=== PATIENT | female | born 1945 | race Caucasian/White ===

== ENCOUNTER 2017-12-18 11:36 | Emergency (ER) | payer MEDICARE ==
[2017-12-18 12:02] LABS: BASOPHILS 0.4 % (0-2); EOSINOPHILS 0.7 % (0-7); HEMATOCRIT 36.5 % (36.0-48.0); HEMOGLOBIN 11.3 g/dL (12-16); IMMATURE GRANULOCYTES 0.2 % (0-5); LYMPHOCYTES 25.8 % (15-50); MCH 22.8 pg (26.0-34.0); MCV 73.7 fL (80.0-100.0); MEAN PLATELET VOLUME 10.2 fL (7.4-10.4); MONOCYTES 4.9 % (2-11); PLATELET COUNT 349 10x3/uL (130-400); RBC 4.95 10x6/uL (4.00-5.40); WBC 10.8 10x3/uL (4.8-10.8)
== END 2017-12-18 13:01 | disposition home or self-care (01) ==
LOC: D.ER 11:36
PROVIDERS: Emergency Medicine
DX: R00.2 Palpitations (principal); F41.9 Anxiety disorder, unspecified; I10 Essential (primary) hypertension; E03.9 Hypothyroidism, unspecified

== ENCOUNTER → 2018-01-01 13:12 | Outpatient (CLI) | payer MEDICARE | END | disposition home or self-care (01) | LOC: D.CT 13:12 | DX: R10.9 Unspecified abdominal pain (principal); K43.2 Incisional hernia without obstruction or gangrene ==

== ENCOUNTER → 2018-08-12 16:36 | Outpatient (CLI) | payer MEDICARE | END | disposition home or self-care (01) | LOC: D.MAMMO 16:00 | DX: Z12.31 Encounter for screening mammogram for malignant neoplasm of breast (principal) ==

== ENCOUNTER → 2018-10-13 12:14 | Outpatient (CLI) | payer MEDICARE, MEDICAID | END | disposition home or self-care (01) | LOC: D.CT 12:14 | DX: R10.11 Right upper quadrant pain (principal) ==

== ENCOUNTER 2018-11-10 11:13 | Outpatient (CLI) | payer MEDICARE, MEDICAID ==
[~2018-11-10] VITALS: Ht 149.9 cm; Wt 77.3 kg
--- NOTE | ~2018-11-10 | HEMODYNAMI ---
PATIENT:KALINA AVILA MEDICAL RECORD: [id number] : 47 LOCATION:[facility] ADMISSION DATE: 11/10/18 Generatedon:11/10/201814:10 Patient name: KALINA AVILA Patient #: [id number] SSN: : 1945 Date of study: 11/10/2018 Page: Of Hemodynamic Procedure Report Patient Data Patient Demographics Procedure consent was obtained First Name: KALINA Gender: Female Last Name: AUSTIN : 1945 Patient #: [id number] Age: 73 year(s) Race: Unknown Additional ID: [id number] Contact details Address: [address] [place] [address] [address] State: [place] City: [facility] Zip code: [address] Past Medical History Allergies Allergen Reaction Date Comments Reported Other allergy 11/10/2018 BENADRYL, IODINE, SODIUM Admission Admission Data Admission Date: 11/10/2018 Admission Time: 11:13 Height (in.): 51 BSA: 1.56 (m2) Height (cm.): 129.54 BMI: 46.76 (kg/m2) Weight (lbs.): 173 Weight (kg.): 78.47 Procedure Procedure Types Cath Procedure Diagnostic Procedure [facility] w/Coronaries Sedation Charges Moderate Sedation up to 15 minutes Procedure Description Procedure Date Procedure Date: 11/10/2018 Procedure Start Time: 13:51 Procedure End Time: 14:09 Procedure Staff Name Function Richy Gregorio MD Performing Physician Sarah Ash RT Monitor Justine Logan RT Scrub Shena Aguirre RN Nurse Juan Jones RN Hostel Manager Procedure Data Cath Procedure Fluoroscopy Diagnostic fluoroscopy Total fluoroscopy dose: 263 dose: 263 mGy mGy Contrast Material Contrast Material Type Amount (ml) Isovue 300 52 Entry Location Entry Primary Successful Side Size Upsize Upsize Entry Closure Succes sful Closure Location (Fr) 1 (Fr) 2 (Fr) Remarks Device Remarks Radial Right 6 Fr artery Short Femoral Right 5 Fr Exoseal artery Estimated blood loss: 5 ml Diagnostic catheters Device Type Used For End Catheter Placement MULTIPACK JL 4.0 5Fr Procedure catheter MULTIPACK 3DRC 5Fr Procedure catheter MULTIPACK Pigtail 5 Fr Procedure catheter Procedure Complications No complications Procedure Medications Medication Administration Route Dosage Oxygen etCO2 Nasal cannula 2 l/min Lidocaine 2% added to field 20 Heparin Flush Bag added to field 2 bags (1000units/500ml NS) 0.9% NaCl I.V. 100 ml/hr Radial Cocktail added to field 1 syringe (Verapomil 2mg/Nitro 400mcg/Heparin 1500units) Versed I.V. 1 mg Fentanyl I.V. 50 mcg Versed I.V. 1 mg Fentanyl I.V. 50 mcg Versed I.V. 1 mg Hemodynamics Rest BSA: 1.56 (m2) O2 Consumption: Estimated: 156.28 (ml/min) O2 Consumption indexed : Estimated:100.18 (ml/min/m) Heart Rate: 92 (bpm) Pressure Samples Time Site Value (mmHg) Purpose Heart Use Rate(bpm) 14:00 LV 127/14,12 Snapshot 95 Gradients Valve Time Site Site Mean SEP/DFP Peak To Heart Use 1 2 (mmHg) (sec/min) Peak Rate (mmHg) (bpm) Aortic 14:00 LV AO 96 Snapshots Pre Cath Intra NCS Post Cath Vital Signs Time Heart Resp SPO2 etCO2 NIBP (mmHg) Rhythm Pain Sedation Rate (ipm) (%) (mmHg) Status Level (bpm) 13:43:23 95 17 96 22.4 166/94(135) NSR 0 (11) 10(A) , No pain 13:47:37 93 17 94 32.9 160/92(129) NSR 0 (11) 10(A) , No pain 13:51:53 94 16 93 32.9 161/90(126) NSR 0 (11) 10(A) , No pain 13:56:09 88 16 94 27.7 151/88(127) NSR 0 (11) 10(A) , No pain 14:01:20 106 15 93 11.2 161/90(129) NSR 0 (11) 10(A) , No pain 14:04:00 97 15 95 17.4 163/93(137) NSR 0 (11) 10(A) , No pain 14:08:16 97 15 90 26.9 151/87(122) NSR 0 (11) 10(A) , No pain Medications Time Medication Route Dose Verified Delivered Reason Notes Effectiveness by by 13:41:36 Oxygen etCO2 2 l/min Richy Pawelie used for Nasal [facility] Aguirre RN procedure cannula 13:41:42 Lidocaine 2% added 20ml Richy Richy for local to vial [facility] anesthetic field MD BENSON 13:41:49 Heparin Flush added 2 bags Richy Lockhart used for Bag to [facility] procedure (1000units/500ml field MD BENSON NS) 13:41:58 0.9% NaCl I.V. 100 Richy Armasie Per ml/hr [facility] Aguirre RN physician 13:42:04 Radial Cocktail added 1 Richy Richy for WASTED , (Verapomil to syringe [facility] vasodilation FEMORAL 2mg/Nitro field MD BENSON ARTERY 400mcg/Heparin USED. 1500units) 13:44:12 Versed I.V. 1 mg Richy Pawelie for sedation [facility] Aguirre RN, MD 13:44:18 Fentanyl I.V. 50 mcg Richy Chatterjee for sedation [facility] Aguirre RN, MD 13:47:57 Versed I.V. 1 mg Richy Armasie for sedation [facility] Aguirre RN, MD 13:48:02 Fentanyl I.V. 50 mcg Richy Armasie for sedation [facility] Aguirre RN, MD 14:00:04 Versed I.V. 1 mg Richy Armasie for sedation [facility] Aguirre RN, MD Procedure Log Time Note 13:25:02 Juna Jones RN sent for patient. Start room use. 13:33:04 Time tracking: Regular hours (M-F 7:00 - 5:00) 13:33:07 Plan of Care:Hemodynamics will remain stable., Cardiac rhythm will remain stable., Comfort level will be maintained., Respiratory function will remain adequate., Patient/ family verbilizes understanding of procedure., Procedure tolerated without complication., Recovers from procedure without complications.. 13:33:09 Diagnostic Cath status Elective 13:33:10 Signed procedure consent form obtained from patient. 13:34:37 Patient received from Pre/Post Procedure Room to [facility] 2 Alert and oriented. Tansferred to table in Supine position. 13:34:38 Warm blankets applied, and kit hugger turned on for patient comfort. 13:34:38 Correct patient and procedure confirmed by team. 13:34:39 ECG and BP/O2 sat monitors applied to patient. 13:41:36 Oxygen 2 l/min etCO2 Nasal cannula was administered by Shena Aguirre RN; used for procedure; 13:41:42 Lidocaine 2% 20ml vial added to field was administered by Richy Gregorio MD; for local anesthetic; 13:41:49 Heparin Flush Bag (1000units/500ml NS) 2 bags added to field was administered by Richy Gregorio MD; used for procedure; 13:41:58 0.9% NaCl 100 ml/hr I.V. was administered by Shena Aguirre RN; Per physician; 13:42:04 Radial Cocktail (Verapomil 2mg/Nitro 400mcg/Heparin 1500units) 1 syringe added to field was administered by Richy Gregorio MD; for vasodilation; WASTED, FEMORAL ARTERY USED. 13:42:17 Vital chart was started 13:42:22 Rhythm: sinus rhythm 13:42:25 Full Disclosure recording started 13:42:41 H&P Date Dictated: 11/06/2018 Within 30 days and on chart., H&P Addendum completed by physician on day of procedure. (MUST COMPLETE FOR ALL OUTPATIENTS). 13:42:42 Pre-procedure instructions explained to patient. 13:42:43 Pre-op teaching completed and patient verbalized understanding. 13:42:44 Family in patients room. 13:42:45 Patient NPO since Midnight. 13:43:01 Patient allergic to Other allergyBENADRYL, IODINE, SODIUM 13:43:02 Is the patient allergic to Iodine/contrast media? Yes. 13:43:04 Was the patient premedicated? Yes 13:43:05 Is patient on blood thinner?No 13:43:06 Patient diabetic? No. 13:43:09 Previous problem with sedation/anesthesia? No ? 13:43:10 Snore? Yes 13:43:11 Sleep apnea? No 13:43:12 Deviated septum? No 13:43:13 Opens mouth fully? Yes 13:43:15 Sticks out tongue? Yes 13:43:17 Airway obstruction? No ? 13:43:18 Dentures? No ? 13:43:20 Modified Nate's test Ulnar < 7 seconds 13:43:23 Patient pain scale 0/10 ?. 13:43:26 IV patent on arrival in left hand with 0.9% NaCl at [facility]. 13:43:35 Lab results completed and on chart. 13:43:37 Right Radial & Right Groin area was prepped with chlora-prep and draped in sterile fashion 13:43:38 Alarms reviewed by R. N. 13:43:38 Sharps counted by scrub and verified by R.N. 13:43:39 --------ALL STOP TIME OUT------ 13:43:39 Final Timeout: patient, procedure, and site verified with staff and physician. All members of the team are in agreement. 13:43:41 Right Radial & Right Groin site verified by team. 13:43:44 Physical assessment completed. ASA score P 2 - A patient with mild systemic disease as per Richy Gregorio MD. 13:43:46 Sedation plan: IV Moderate Sedation Medication:Versed, Fentanyl 13:43:49 Use device set Radial Dx or PCI 13:43:50 ACIST Syringe (13652) opened to sterile field. 13:43:51 Bag Decanter (2002S) opened to sterile field. 13:43:52 ACIST Hand Control (00226) opened to sterile field. 13:43:52 ACIST Manifold (62062) opened to sterile field. 13:43:53 Tegaderm 4 x 4 (1626W) opened to sterile field. 13:43:54 Medline Cath Pack ([id number]) opened to sterile field. 13:43:54 DIAGNOSTIC WIRE .035 260cm J wire (811166) opened to sterile field. 13:43:55 MBrace Wrist Support ([id number]) opened to sterile field. 13:43:56 SHEATH 6FR Slender (93-6427) opened to sterile field. 13:44:12 Versed 1 mg I.V. was administered by Shena Aguirre RN; for sedation; 13:44:18 Fentanyl 50 mcg I.V. was administered by Shena Aguirre RN; for sedation; 13:47:41 Baseline sample Acquired. 13:47:57 Versed 1 mg I.V. was administered by Shena Aguirre RN; for sedation; 13:47:57 Zero performed for pressure channel P1 13:48:02 Fentanyl 50 mcg I.V. was administered by Shena Aguirre RN; for sedation; 13:48:05 Zero performed for pressure channel P1 13:50:58 Procedure started. 13:51:23 Local anesthetic to right radial artery with Lidocaine 2% by Richy Gregorio MD.INITIAL ACCESS ONLY 13:51:42 Zero performed for pressure channel P1 13:52:22 A 6 Fr Short sheath was inserted into the Right Radial artery 13:55:27 RO RADIAL..UNABLE TO GET WIRE PAST THE ELBOW 13:55:31 Local anesthetic to right femoral artery with Lidocaine 2% by Richy Gregorio MD.ADDITIONAL ACCESS 13:55:40 A 5 Fr sheath was inserted into the Right Femoral artery 13:55:45 Use device set Multipack Set 13:55:48 DIAGNOSTIC Multipack 5Fr catheter set ([id number]) opened to sterile field. 13:56:50 A MULTIPACK JL 4.0 5Fr catheter was advanced over the wire and used for Procedure. 13:57:24 LCA angiography performed. 13:57:47 Catheter removed. 13:58:00 A MULTIPACK 3DRC 5Fr catheter was advanced over the wire and used for Procedure. 13:58:43 RCA angiography performed. 13:58:44 Catheter removed. 13:59:08 A MULTIPACK Pigtail 5 Fr catheter was advanced over the wire and used for Procedure. 13:59:22 LV gram done using ESCALANTE 13:59:42 Injector settings: Ml/sec: 10, Volume: 20, 14:00:04 Versed 1 mg I.V. was administered by Shena Aguirre RN; for sedation; 14:00:11 LV hemodynamics recorded. 14:00:19 EF : 55 % 14:00:41 Catheter removed. 14:00:52 EXOSEAL 5Fr (EX500) opened to sterile field. 14:00:58 TR BAND Standard ([id number]) opened to sterile field. 14:01:21 Sheath removed intact; hemostasis achieved with Exoseal to the Right Femoral artery. 14:01:28 Procedure ended.(Physican Out) 14:03:55 Fluoroscopy dose: 263 mGy 14:03:55 Flurop Dose total: 263 14:03:59 Contrast amount:Isovue 300 52ml. 14:04:02 Sharps counted by scrub and verified by R.N. 14:04:05 TR band inflated with 13cc of air. 14:05:57 Patient Height : 51 inches 14:06:00 Patient Weight : 173 lbs 14:08:03 Post-procedure physical assessment completed. ASA score P 2 - A patient with mild systemic disease as per Richy Gregorio MD. 14:08:06 Post procedure rhythm: sinus rhythm 14:08:09 Estimated blood loss: 5 ml 14:08:09 Post procedure instruction explained to patient.Patient verbalizes understanding. 14:08:13 Patient needs reinforcement of post procedure teaching. 14:08:40 Procedure type changed to Cath procedure, Diagnostic procedure, LHC, LHC w/Coronaries, Sedation Charges, Moderate Sedation up to 15 minutes 14:09:41 Procedure and supply charges have been captured, reviewed, submitted and are correct. 14:09:43 Procedure Complication : No complications 14:09:45 Vital chart was stopped 14:09:45 See physician's report for complete and final results. 14:09:47 Report given to Pre/Post Procedure Room. 14:09:49 Patient transfered to Pre/Post Procedure Room with Bed. 14:09:51 Procedure ended. 14:09:51 Full Disclosure recording stopped 14:09:54 End room use (Document Last) Device Usage Item Name Manufacture Quantity Catalog Hospital Part Current Minimal Lot# / Number Charge Number Stock Stock Serial# Code ACIST Acist 1 00312 [id number] 090335 608153 20 Syringe Medical (00549) Systems Inc Bag Microtek 1 2001S 609451 04845 618454 5 Decanter Medical Inc. () ACIST Hand Acist 1 76160 207846 098237 618705 5 Control Medical (92509) Systems Inc ACIST Acist 1 37161 784183 047795 670742 5 Manifold Medical (96755) Systems Inc Tegaderm 4 3M 1 1626W 554277 970107 388076 5 x 4 (1626W) Medline Medline 1 [id number] 757563 19414 277729 5 Cath Pack ([id number]) DIAGNOSTIC St Thai 1 965468 764435 090798 487480 30 WIRE .035 260cm J wire (539921) MBrace Advanced 1 140-0250-00 522546 28194 316006 5 Wrist Vascular Support Dynamics ([id number]) SHEATH 6FR Terumo 1 [id number] 297879 541244 406075 5 Slender (80-1060) DIAGNOSTIC Cardinal 1 GV3247 832274 03301 826719 30 Multipack Health 5Fr catheter set (TF0966) MULTIPACK Cardinal 1 407087 5 JL 4.0 5Fr Health catheter MULTIPACK Cardinal 1 788507 5 3DRC 5Fr Health catheter MULTIPACK Cardinal 1 548582 5 Pigtail 5 Health Fr catheter EXOSEAL 5Fr Cardinal 1 EX500 338779 870617 625550 10 (EX500) Health TR BAND Terumo 1 [id number] 379986 482967 284621 40 Standard ([id number]) Signature Audit [place] Stage Time Signature Unsigned Intra-Procedure 11/10/2018 Sarah Ash 2:10:21 PM RT(R) Signatures Monitor : Sarah Ash Signature : RT Date : Time : [address] [address]
[2018-11-10] MEDS ORDERED: NORVASC2.5 MG PO (11:45)
[2018-11-10] MEDS ORDERED: VASOTEC20 MG PO (11:46)
[2018-11-10 11:51] VITALS: BP 132/81; Ht 149.9 cm; Wt 77.3 kg
[2018-11-10 12:17] LABS: BASOPHILS 0.1 % (0-2); EOSINOPHILS 0 % (0-7); HEMATOCRIT 43.7 % (36.0-48.0); HEMOGLOBIN 14.7 g/dL (12-16); IMMATURE GRANULOCYTES 0.1 % (0-5); LYMPHOCYTES 9.5 % (15-50); MCH 28.6 pg (26.0-34.0); MCHC 33.6 g/dL (31.0-37.0); MEAN PLATELET VOLUME 10.6 fL (7.4-10.4); MONOCYTES 1.1 % (2-11); NEUTROPHILS 89.2 % (40-80); RBC 5.14 10x6/uL (4.00-5.40); RDW 15.7 % (11.5-14.5); WBC 13.5 10x3/uL (4.8-10.8)
[2018-11-10 12:31] LABS: CALC OSMOLALITY 292 mosm/kg (275-300); CALCIUM 9.4 mg/dL (8.5-10.1); CARBON DIOXIDE 24.9 mmol/L (21.0-32.0); CHLORIDE - SERUM 105 mmol/L (98-107); CREATININE - SERUM 0.7 mg/dL (0.6-1.3); GLUCOSE 122 mg/dL (74-106); POTASSIUM - SERUM 3.1 mmol/L (3.5-5.1); SODIUM 145 mmol/L (136-145); UREA NITROGEN 21 mg/dL (7-18); eGFR NON AFRICAN AMERICAN 87 mL/min (90-120)
[2018-11-10 12:35] LABS: PLATELET COUNT 278 10x3/uL (130-400)
--- NOTE | 2018-11-10 14:20 | NUR ---
PT RECEIVED VIA STRETCHER FROM [employer]. HR 97, BP 141/84, O2 ON AT 2L/NC O2 SAT 95. PT DENIES PAIN OR NAUSEA, TR BAND TO R WRIST, NO BLEEDING OR HEMATOMA NOTED. 5FR EXOCELE TO R GROIN, DRESSING CDI NO BLEEDING OR SWELLING NOTED. R PEDAL PULSES PALPABLE. PT INSTRUCTED TO KEEP HEAD FLAT AND R LEG STRAIGHT. CALL LIGHT IN REACH.
--- NOTE | 2018-11-10 14:30 | NUR ---
PT RESTING WITH EYES CLOSED, TR BAND IN PLACE, NO BLEEDING OR SWELLING NOTED. R GROIN DRESSING CDI NO BLEEDING OR HEMATOMA NOTED. SIPS OF WATER GIVEN. DENIES PAIN OR NEEDS. CALL LIGHT IN REACH
--- NOTE | 2018-11-10 15:00 | NUR ---
PT RESTING W EYES CLOSED, HR SINUS TACHY RATE 92, BP 145/77. TR BAND IN PLACE, NO BLEEDING OR SWELLING NOTED. R GROIN SOFT TO TOUCH, DRESSING CDI NO BLEEDING OR HEMATOMA NOTED. CALL LIGHT IN REACH
--- NOTE | 2018-11-10 15:15 | NUR ---
3 CC OF AIR REMOVED FROM TR BAND, NO BLEEDING OR SWELLING NOTED. R GROIN DRESSING REMAINS CDI NO BLEEDING OR SWELLING NOTED. CALL LIGHT IN REACH, DENIES PAIN OR NEEDS.
--- NOTE | 2018-11-10 15:29 | NUR ---
PT PLACED ON BEDPAN, VOIDED MOD AMOUNT CLEAR YELLOW URINE. HOB ELEVATED SLIGHTLY, SANDWICH SERVED. DENIES PAIN OR NEEDS. CALL LIGHT IN REACH
--- NOTE | 2018-11-10 15:40 | NUR ---
3 ADD'L CC REMOVED FROM TR BAND, NO BLEEDING OR HEMATOMA NOTED. R GROIN DRESSING REMAINS CDI, NO BLEEING OR SWELLING NOTED. TOLERATED LUNCH W/O NAUSEA. DENIES PAIN OR NEEDS. CALL LIGHT IN REACH. VSS.
--- NOTE | 2018-11-10 16:10 | NUR ---
DISCHARGE INSTRUCTIONS REVIEWED WITH PT AND FAMILY, VERBALIZED UNDERSTANDING. IV REMOVED WITH CATH INTACT, MONITORS REMOVED. WAITING FOR DR. YEN TO TALK WITH FAMILY BEFORE DISCHARGE.
--- NOTE | 2018-11-10 16:20 | NUR ---
DR YEN IN AND SPOKE WITH PT AND FAMILY REGARDING CATH FINDINGS AND PLAN OF CARE. PT UP TO DRESS FOR DISCHARGE
--- NOTE | 2018-11-10 16:30 | NUR ---
REMAINING AIR REMOVED FROM TR BAND, BAND REMOVED AND DRESSING APPLIED. NO BLEEDING OR HEMATOMA NOTED. PT DISCHARGED VIA WC TO PRIVATE VEHICLE.
--- NOTE | 2018-11-13 13:30 | OP ---
PATIENT NAME: KALINA AVILA MEDICAL RECORD: [id number] :47 LOCATION:D.CAT ADMISSION DATE: SURGEON: SEVEN ROSENTHAL MD DATE OF OPERATION: 11/10/2018 PROCEDURE: Left heart catheterization, selective coronary angiography, right femoral artery approach. CATHETERS: A 5-Nepalese sheath, 5/4 left and right Pebbles, 5/4 pig. The procedure was well tolerated. The patient was returned to the gray. Sheath was removed. ExoSeal device was placed. FINDINGS: Left ventriculography in 30-degree ESCALANTE view: Normal wall motion. Normal systolic function. CORONARY ANATOMY: LEFT MAIN: Left main is free of disease. LAD: Free of disease in the diagonal system. CIRCUMFLEX: Free of disease in the marginal system. RIGHT CORONARY ARTERY: Dominant artery, gives rise to PDA, free of disease. IMPRESSION: Normal LV systolic function. Normal coronary anatomy. TRANSINT:[id number] Voice Confirmation ID: [id number] DOCUMENT ID: [id number] SEVEN ROSENTHAL MD at 1330 CC: [id number] DICTATION DATE: 11/10/18 1409 ASSISTANT TENNIS PROFESSIONAL: 11/10/18 1605 DEP CLI 11/10/18 [place] [address] [place] [address]
== END 2018-11-10 16:30 | disposition home or self-care (01) ==
LOC: D.CATH 11:13
PROVIDERS: Internal Medicine Interventional Cardiology
DX: I20.9 Angina pectoris, unspecified (principal)

== ENCOUNTER → 2019-01-22 08:11 | Outpatient (CLI) | payer MEDICARE, MEDICAID ==
[2018-11-10 11:51] VITALS: BMI 34.4
[~2019-01-22 08:11] MED LIST: NORVASC2.5 MG PO; VASOTEC20 MG PO
== END | disposition home or self-care (01) ==
LOC: D.US 08:11
PROVIDERS: ATTEND Family Medicine
DX: E04.9 Nontoxic goiter, unspecified (principal)

== ENCOUNTER 2019-02-16 01:24 | Emergency (ER) | payer MEDICARE, MEDICAID ==
[~2019-02-16] VITALS: Ht 149.9 cm; Wt 75.3 kg
[2019-02-16 01:27] VITALS: Ht 149.9 cm; Wt 75.3 kg
[2019-02-16] MEDS ORDERED: ALBUTEROL SULF8.5 GM INH (01:29)
[2019-02-16] MEDS ORDERED: ULTRAM50 MG PO (01:29)
[2019-02-16 01:44] LABS: BASOPHILS 0.5 % (0-2); EOSINOPHILS 1.1 % (0-7); HEMOGLOBIN 13.7 g/dL (12-16); IMMATURE GRANULOCYTES 0.2 % (0-5); LYMPHOCYTES 28.1 % (15-50); MCH 28.5 pg (26.0-34.0); MCHC 33.4 g/dL (31.0-37.0); MCV 85.4 fL (80.0-100.0); MONOCYTES 8.9 % (2-11); NEUTROPHILS 61.2 % (40-80); PLATELET COUNT 278 10x3/uL (130-400); RDW 15.1 % (11.5-14.5); WBC 8.8 10x3/uL (4.8-10.8)
[2019-02-16 01:54] LABS: APTT 35.9 SECONDS (22.8-39.4); INR 1.18 (0.85-1.17); PROTIME 14.5 SECONDS (11.6-15.0)
[2019-02-16 01:58] LABS: ALBUMIN 3.5 g/dL (3.4-5.0); ALKALINE PHOSPHATASE 82 U/L (46-116); ALT (SGPT) 25 U/L (10-68); BILIRUBIN - TOTAL 0.45 mg/dL (0.2-1.3); CALC OSMOLALITY 283 mosm/kg (275-300); CALCIUM 8.5 mg/dL (8.5-10.1); CARBON DIOXIDE 29.2 mmol/L (21.0-32.0); CHLORIDE - SERUM 105 mmol/L (98-107); CREATININE - SERUM 0.6 mg/dL (0.6-1.3); GLUCOSE 99 mg/dL (74-106); POTASSIUM - SERUM 3.2 mmol/L (3.5-5.1); PROTEIN - SERUM 7.2 g/dL (6.4-8.2); SODIUM 141 mmol/L (136-145); UREA NITROGEN 22 mg/dL (7-18); eGFR NON AFRICAN AMERICAN > 90 mL/min (90-120)
[2019-02-16 02:09] LABS: CKMB 1.2 U/L (0.0-3.6); CREATINE KINASE 73 UL (21-215); MAGNESIUM - SERUM 1.9 mg/dL (1.8-2.4)
[2019-02-16 02:11] LABS: TROPONIN-I < 0.017 ng/mL (0.000-0.060)
[2019-02-16 03:26] VITALS: BP 148/75
== END 2019-02-16 03:26 | disposition home or self-care (01) ==
LOC: D.ER 01:24
PROVIDERS: Family Medicine
DX: R07.9 Chest pain, unspecified (principal); I10 Essential (primary) hypertension

== ENCOUNTER → 2019-03-26 10:53 | Outpatient (CLI) | payer MEDICARE, MEDICAID ==
[2019-02-16 01:27] VITALS: BMI 34.4
[~2019-03-26 10:53] MED LIST changes: +ALBUTEROL SULF8.5 GM INH; +ULTRAM50 MG PO
== END | disposition home or self-care (01) ==
LOC: D.RAD 10:53
PROVIDERS: ATTEND Internal Medicine Gastroenterology
DX: R13.10 Dysphagia, unspecified (principal); K92.1 Melena

== ENCOUNTER → 2019-09-16 21:30 | Outpatient (CLI) | payer MEDICARE, MEDICAID ==
[2019-02-16 01:27] VITALS: BMI 34.4
[2019-09-21 17:08] LABS: AEROBE ID Final report (())
== END | disposition home or self-care (01) ==
LOC: D.LABREF 21:30
PROVIDERS: ATTEND Urology
DX: D72.0 Genetic anomalies of leukocytes (principal); Z03.89 Encounter for observation for other suspected diseases and conditions ruled out

== ENCOUNTER 2020-06-06 19:00 | Outpatient (CLI) | payer MEDICARE, MEDICAID ==
[2019-02-16 01:27] VITALS: BMI 34.4
== END 2020-06-06 23:59 | disposition home or self-care (01) ==
LOC: D.MAMMO 19:00
PROVIDERS: ATTEND Family Medicine
DX: Z12.31 Encounter for screening mammogram for malignant neoplasm of breast (principal)

== ENCOUNTER → 2021-01-19 11:26 | Outpatient (CLI) | payer MEDICARE, MEDICAID ==
[2020-12-01 18:24] VITALS: BMI 34.0
[~2021-01-19 11:26] MED LIST changes: +ZPAK PO
--- NOTE | 2021-01-23 16:00 | EC ---
PATIENT:KALINA AVILA DATE OF SERVICE: 01/19/21 SEX: F MEDICAL RECORD: [id number] DATE OF : [birth year] LOCATION:[facility] AGE OF PATIENT: 75 ADMISSION DATE: 01/19/21 REFERRING PHYSICIAN: INTERPRETING PHYSICIAN: SEVEN ROSENTHAL MD ECHOCARDIOGRAM REPORT ECHO CHARGES 4 ECHO COMPLETE Date: 01/19/21 CLINICAL DIAGNOSIS: DYSPNEA/HEART MURMUR ECHOCARDIOGRAPHIC MEASUREMENTS (adult normal given) AC root (d.<3.7cm) 3.2 cm LV Septum d (<1.2 cm> 1.2 cm Valve Excursion 1.4 cm LV Septum (systole) 1.4 cm Left Atria (s.<4.0cm> 3.6 cm LVPW d(<1.2cm) 1.6 cm RV (d.<2.3cm) 3.8 cm LVPW (sytole) 1.8 cm LV diastole(<5.6CM) 5.1 cm MV E-F(>70mm/sec) cm LV systole 3.0 cm LVOT Diameter 1.7 cm MV exc.(>10mm) 1.2 cm Est.ejection fraction (50-75%) % DOPPLER: LVIT cm/sec A 92.0 cm/sec E 71.0 cm/sec LA cm/sec RVSP 34 mmHg LVOT 90 cm/sec AOP1/2T m/s Asc. Ao 113 cm/sec RVOT 79 cm/sec RA cm/sec PA 115 cm/sec AV Gradient Peak 5.14 mmHg AV Mean 2.53 mmHg AV Area 2.0 cm MV Gradient Peak 4.19 mmHg MV Mean 1.27 mmHg MV Area cm COMMENTS: Greenskeeper Head: 2 GANESH KIRK Microfilm Duplicating Unit Supervisor: 3 Dr. Pink TAPE# PACS Pericardial Effusion N DATE OF SERVICE: Adequate 2D, color flow imaging, spectral Doppler, and M-Mode. FINDINGS: Borderline LVH. LV internal dimension is normal. Wall motion is normal. EF is greater than or equal to 55%. Aortic valve is tricuspid. No evidence of stenosis by Doppler interrogation. Left atrium is normal at 3.6 cm. Mitral valve shows no prolapse. Trace MR. Right side is grossly normal. Mild TR. ECHOCARDIOGRAM REPORT [id number] KALINA AVILA TRANSINT:[id number] Voice Confirmation ID: [id number] DOCUMENT ID: [id number] SEVEN ROSENTHAL MD at 1600 CC: [id number] DICTATION DATE: 01/20/21820 MANAGER PRODUCE: 01/20/21911 DEP CLI 01/19/21 [place] [id number] [place] [id number]
== END | disposition home or self-care (01) ==
LOC: D.HCCECHO 01-16 11:30
PROVIDERS: ATTEND Internal Medicine Interventional Cardiology
DX: R06.00 Dyspnea, unspecified (principal)

== ENCOUNTER → 2021-02-07 08:14 | Outpatient (CLI) | payer MEDICARE, MEDICAID ==
[2020-12-01 18:24] VITALS: BMI 34.0
== END | disposition home or self-care (01) ==
LOC: D.RAD 08:14
PROVIDERS: ATTEND Family Medicine
DX: R13.10 Dysphagia, unspecified (principal)

== ENCOUNTER 2021-02-20 22:09 | Observation (INO) | payer MEDICARE, MEDICAID ==
[~2021-02-20] VITALS: Ht 149.9 cm; Wt 75.9 kg
[2021-02-20 22:39] LABS: BASOPHILS 0.4 % (0-2); EOSINOPHILS 0.9 % (0-7); HEMATOCRIT 42.4 % (36.0-48.0); HEMOGLOBIN 14.1 g/dL (12-16); IMMATURE GRANULOCYTES 0.2 % (0-5); LYMPHOCYTE ABS# 3.03 10x3/uL (1.18-3.74); LYMPHOCYTES 29.6 % (15-50); MCH 29.3 pg (26.0-34.0); MCHC 33.3 g/dL (31.0-37.0); MCV 88.1 fL (80.0-100.0); MEAN PLATELET VOLUME 11.1 fL (7.4-10.4); MONOCYTES 7.4 % (2-11); NEUTROPHIL ABS# 6.28 10x3/uL (1.56-6.13); NEUTROPHILS 61.5 % (40-80); PLATELET COUNT 249 10x3/uL (130-400); RBC 4.81 10x6/uL (4.00-5.40); WBC 10.2 10x3/uL (4.8-10.8)
[2021-02-20 22:42] LABS: BILIRUBIN NEGATIVE (NEGATIVE); KETONE NEGATIVE (NEGATIVE); NITRITE NEGATIVE (NEGATIVE); UROBILINOGEN NORMAL mg/dL (< 2)
[2021-02-20 22:46] LABS: BACTERIA FEW HPF (NONE SEEN); CALC OSMOLALITY 282 mosm/kg (275-300); CALCIUM 8.9 mg/dL (8.5-10.1); CARBON DIOXIDE 23.2 mmol/L (21.0-32.0); CHLORIDE - SERUM 104 mmol/L (98-107); CREATININE - SERUM 0.6 mg/dL (0.6-1.3); GLUCOSE 112 mg/dL (74-106); POTASSIUM - SERUM 4.3 mmol/L (3.5-5.1); SODIUM 141 mmol/L (136-145); SQUAMOUS EPITHELIAL 0-5 HPF (0-4); UREA NITROGEN 14 mg/dL (7-18); WHITE CELLS - URINE NONE SEEN HPF (0-4); eGFR NON AFRICAN AMERICAN > 90 mL/min (90-120)
[2021-02-20 22:54] LABS: ALBUMIN 3.4 g/dL (3.4-5.0); ALKALINE PHOSPHATASE 116 U/L (30-120); ALT (SGPT) 21 U/L (10-68); AMYLASE - SERUM 36 U/L (25-115); BILIRUBIN - TOTAL 0.61 mg/dL (0.2-1.3); LIPASE 129 U/L (73-393); PROTEIN - SERUM 7.2 g/dL (6.4-8.2)
[2021-02-20 22:55] LABS: TROPONIN-I < 0.017 ng/mL (0.000-0.060)
[2021-02-20 23:30] VITALS: BP 182/92
[2021-02-21] VITALS (8 sets, daily range): BP systolic 145–189; BP diastolic 68–91; Ht 149.9 cm; Wt 75.9 kg
[2021-02-21 03:43] LABS: CKMB 1.6 U/L (0.0-3.6); CREATINE KINASE 65 UL (21-215)
[2021-02-21 03:46] LABS: TROPONIN-I < 0.017 ng/mL (0.000-0.060)
[2021-02-21] MEDS ORDERED: SYNTHROID25 MCG PO (06:09)
[2021-02-21] MEDS ORDERED: MICARDIS40 MG PO (10:24)
--- NOTE | 2021-02-21 15:20 | NUR ---
ALERT AND ORIENTED X4. PATIENT STATES, "I'M NOT LEAVING UNTIL THEY FIND OUT WHAT IS GOING ON." BEGINS CALLING INSURANCE COMPANY AND 'S OFFICE. INFORM DOCTOR WILL BE INFORMED. INFORM JUAN CARLOS PINO PATIENT REQUESTING MORE INFORMATION CAUSING PAIN.
--- NOTE | 2021-02-21 17:28 | NUR ---
ALERT AND ORIENTED X4. SITTING UP IN BED. DC LT HAND IV TIP INTACT. DISCHARGE INSTRUCTIONS GIVEN VERBALLY AND WRITTEN. DISCHARGE PAPERS SIGNED ON CHART. ESCORT TO RIDE VIA WHEELCHAIR. REMAINS FREE FROM INJURY. TREAT ELEVATED BP WITH VASOTEC SCHEDULED 2100 MEDICATION.
== END 2021-02-21 17:32 | disposition home or self-care (01) ==
LOC: EDBD 22:09 → D.ER 22:09 → D.M2 02-21 03:54 → EDBD 02-21 03:54 → OBSVTIME 02-21 03:55 → D.M2 02-21 17:32
PROVIDERS: Family Medicine; ADMIT Family Medicine; ATTEND Family Medicine
DX: K80.20 Calculus of gallbladder without cholecystitis without obstruction (principal); R10.9 Unspecified abdominal pain; I10 Essential (primary) hypertension; J45.901 Unspecified asthma with (acute) exacerbation; G89.29 Other chronic pain; E87.6 Hypokalemia

== ENCOUNTER 2021-04-11 07:45 | Day surgery (SDC) | payer MEDICARE, MEDICAID ==
[~2021-04-11] VITALS: Ht 149.9 cm; Wt 75.0 kg
[~2021-04-11 07:45] MED LIST changes: +MICARDIS40 MG PO; +SYNTHROID25 MCG PO
[2021-04-11 08:10] LABS: EOSINOPHILS 1.8 % (0-7); HEMATOCRIT 44.1 % (36.0-48.0); HEMOGLOBIN 14.7 g/dL (12-16); LYMPHOCYTES 25.5 % (15-50); MCH 28.9 pg (26.0-34.0); MCHC 33.2 g/dL (31.0-37.0); MCV 87.1 fL (80.0-100.0); MEAN PLATELET VOLUME 8.3 fL (7.4-10.4); MONOCYTES 6.8 % (2-11); NEUTROPHILS 64.9 % (40-80); PLATELET COUNT 256 10x3/uL (130-400); RBC 5.06 10x6/uL (4.00-5.40); RDW 15.8 % (11.5-14.5)
[2021-04-11 08:13] LABS: CALC OSMOLALITY 284 mosm/kg (275-300); CALCIUM 8.8 mg/dL (8.5-10.1); CHLORIDE - SERUM 105 mmol/L (98-107); CREATININE - SERUM 0.7 mg/dL (0.6-1.3); GLUCOSE 110 mg/dL (74-106); POTASSIUM - SERUM 3.9 mmol/L (3.5-5.1); SODIUM 141 mmol/L (136-145); UREA NITROGEN 21 mg/dL (7-18); eGFR NON AFRICAN AMERICAN 87 mL/min (90-120)
[2021-04-11 10:38] VITALS: Ht 149.9 cm; Wt 75.0 kg
[2021-04-11] MEDS ORDERED: FLOVENT DISKU100 MCG INH (10:43)
--- NOTE | 2021-04-11 12:53 | NUR ---
[address] FALK. PROCEDURE FINDINGS DISCUSSED WITH PATIENT. Yossi HILLIARD R.N.
--- NOTE | 2021-04-11 15:18 | NUR ---
1355 DRESSED, AWAKE & ALERT. PROVIDED WITH D/C INFORMATION INCLUDING: MED REC, RTC APPT., SHEET LISTING NSAIDS TO HOLD X'S 10 DAYS, & [facility] POST ENDOSCOPY D/C INSTRUCTIONS. PT VOICED UNDERSTANDING. TO PRIVATE CAR PER WHEELCHAIR BY THIS NURSE. HOME WITH BROTHER, ADRIANE AVILA. Yossi HILLIARD R.N.
--- NOTE | 2021-04-13 09:22 | OP ---
PATIENT NAME: KALINA AVILA MEDICAL RECORD: [id number] :47 LOCATION:D.OPS ADMISSION DATE: SURGEON: TOMY FALK MD DATE OF OPERATION: 04/11/2021 PREOPERATIVE DIAGNOSES: 1. Dysphagia. 2. Gastroesophageal reflux. 3. Barium swallow evidence of a possible gastric mass. POSTOPERATIVE DIAGNOSES: 1. Dysphagia. 2. Gastroesophageal reflux. 3. Antral erosions. 4. No evidence of gastric mass. SURGEON: Tomy Falk M.D. CHEMICAL HANDLER: None. BLOOD LOSS: Minimal. ANESTHESIA: IV sedation. COMPLICATIONS: None. PROCEDURES PERFORMED: 1. Esophagogastroduodenoscopy with antral biopsies. 2. Esophageal dilation psritlm-rfv-[id number] balloon to 54-Greek. ENDOSCOPIC PROCEDURE: The patient was conveyed to the endoscopy suite electively on 04/11/2021. IV sedation was induced by the anesthesia staff. A bite block was inserted. A gastroscope was inserted into the mouth. It was advanced easily into the hypopharynx. The esophagus was easily intubated as were the stomach and duodenum. Upon withdrawal, retroflexed and angulus views were obtained. Antral biopsies were obtained and withdrew into the cardia of the stomach. Advanced through the catheter balloon. It sequentially dilated the entire length of the esophagus to 54-Greek. The gastroscope and the balloon dilator were then removed. I then readvanced the gastroscope. There had been no evidence of false passage or perforation. The endoscope was then withdrawn under direct vision. I will see the patient in my office in 2 to 3 weeks to review the results of the biopsies. TRANSINT:[id number] Voice Confirmation ID: [id number] DOCUMENT ID: [id number] OPERATIVE REPORT [id number] KALINA AVILA TOMY FALK MD at 0922 CC: [id number] DICTATION DATE: 04/11/21 1228 QUARTER INSPECTOR: 04/11/21 2155 [facility] 04/11/21 [place] [id number]
== END 2021-04-11 13:55 | disposition home or self-care (01) ==
LOC: D.OPS 07:45
PROVIDERS: Anesthesiology; ATTEND Surgery
DX: R13.10 Dysphagia, unspecified (principal); K21.9 Gastro-esophageal reflux disease without esophagitis; K25.9 Gastric ulcer, unspecified as acute or chronic, without hemorrhage or perforation; I10 Essential (primary) hypertension; E03.9 Hypothyroidism, unspecified